=== PATIENT | female | born 1950 | race Caucasian/White ===

== ENCOUNTER 2017-01-11 08:44 | Day surgery (SDC) | payer BC ==
--- NOTE | ~2017-01-11 | PREOPHP ---
PreOp History and Physical [address] [place]. [address] NAME: GRACIELA ESPINO : [birth year] STATUS : [facility] UNIT#: [id number] AGE: 66 ADM/REG DATE : 01/11/17 MR#: [id number] REPORT SERV DATE: 01/20/17 DICTATED BY: LUCHO MORTENSEN III DATE: 01/12/17 REPORT STATUS : Draft TRANSCRIBED BY: [employer] DATE: 01/12/17 HISTORY OF PRESENT ILLNESS: This 66-year-old female comes to the operating room for gastrojejunostomy for gastric outlet obstruction secondary to chronic pancreatitis. The patient has a history of severe biliary pancreatitis. Approximately one year ago, she had severe pancreatitis requiring prolonged hospitalization. Following this, she developed a large pancreatic pseudocyst requiring open cystogastrostomy and cholecystectomy. The patient's recovery was very prolonged. The patient had been doing well until the last 4 weeks or so. She developed nausea, vomiting, and weight loss. Her workup shows evidence for high-grade gastric outlet obstruction secondary to duodenal stenosis. This is related to chronic pancreatitis with extrinsic compression of the duodenum. The patient has had profound weight loss related to this. She comes now for gastrojejunostomy. PAST MEDICAL HISTORY: 1. History of severe biliary pancreatitis in the past with prolonged hospitalization and resulting in a large pancreatic pseudocyst which required an internal cystogastrostomy. 2. Hypertension. 3. Diabetes mellitus. 4. Hypothyroidism. 5. Previous necrotizing pancreatitis. 6. Coronary artery disease. PAST SURGICAL HISTORY: Includes open cholecystectomy and open cystogastrostomy, and cardiac stent placement. MEDICATIONS: Norvasc, Caltrate, Coreg, Dilaudid, insulin, levothyroxine, vitamin, Zofran, Roxicodone, and memantine. FAMILY HISTORY: Unremarkable. SOCIAL HISTORY: No history of tobacco or alcohol use. ALLERGIES: NONE. REVIEW OF SYSTEMS: The patient complains of weight loss, nausea, vomiting, and back pain. PHYSICAL EXAMINATION: GENERAL: Reveals a frail female, in no acute distress. She is alert and oriented x3. VITAL SIGNS: Blood pressure 90/52, pulse 77, temperature 97.4. HEENT: Unremarkable. Cranial cervical 2 through 12 are normal. LUNGS: Clear. CARDIAC: Normal. ABDOMEN: Soft. Nontender. EXTREMITIES: Normal. PreOp History and Physical [address] [place]. [address] NAME: GRACIELA ESPINO : [birth year] STATUS : [facility] UNIT#: [id number] AGE: 66 ADM/REG DATE : 01/11/17 MR#: [id number] REPORT SERV DATE: 01/20/17 DICTATED BY: LUCHO MORTENSEN III DATE: 01/12/17 REPORT STATUS : Draft TRANSCRIBED BY: TON DATE: 01/12/17 LABORATORY: Panendoscopy shows a high-grade duodenal obstruction with stricture. CT scan of the abdomen and pelvis shows evidence for pancreatitis. There was noted to be a small residual pseudocyst which was felt not to be related to her obstruction. There is noted to be stranding and inflammatory changes with partial obstruction of the proximal duodenum with dilatation of the stomach with air-fluid levels. ASSESSMENT:: A 66-year-old female with: 1. High-grade gastric outlet obstruction, secondary to extrinsic compression of the duodenum secondary to chronic pancreatitis. 2. History of previous severe necrotizing pancreatitis requiring cystgastrostomy for large pancreatic pseudocyst. 3. Insulin-dependent diabetes mellitus. 4. Hypertension. 5. Profound nausea, vomiting, weight loss secondary to high-grade gastric outlet obstruction. PLAN: The patient comes to the operating room now for a gastrojejunostomy. This procedure, the risks, benefits, and alternatives, including not limited to the risk for bleeding, infection, enterotomy, injury to any abdominal structure, postop small bowel obstruction, ileus, incisional hernia, dehiscence, anastomotic leak, resulting in peritonitis, sepsis, and , gastroparesis, gastric outlet obstruction. Unforeseen complications including deep venous thrombosis, pulmonary embolus, myocardial infarction, stroke, pneumonia, and , have been fully and completely explained to the patient and family at length prior to surgery. The fact that this is a major operation with high risk for morbidity and mortality in this frail patient has been explained. The option of nonoperative management has been offered but declined. The patient's questions were answered. She clearly understands the risks and agrees to surgery as planned. YARIEL/TON Lucho Mortensen III, M.D. / [id number] CC: MD Jocelyn Mcclain Susan R.
--- NOTE | ~2017-01-11 | EGD ---
EGD REPORT [facility] [address] [address] NAME: GRACIELA ESPINO : [birth year] STATUS : [facility]#: [id number] AGE: 66 ADM/REG DATE : 01/11/17 MR#: [id number] REPORT SERV DATE: 01/11/17 DICTATED BY: KANDY BENNETT DATE: 01/11/17 REPORT STATUS : Draft TRANSCRIBED BY: [facility] DATE: 01/11/17 Endoscopy Center Patient Name: Graciela Espino Date of : 1950 Attending MD: KANDY BENNETT, Procedure Date No Time: 01/11/2017 Procedure: Upper EUS Indications: For evaluation of pancreatic cystic neoplasm, Nausea with vomiting Referring MD: LOWELL DONNELLY Medicines: Monitored Anesthesia Care Complications: No immediate complications. Estimated blood loss: None. Procedure: Pre-Anesthesia Assessment: - ASA Grade Assessment: III - A patient with severe systemic disease. After obtaining informed consent, the endoscope was passed under direct vision. Throughout the procedure, the patient's blood pressure, pulse, and oxygen saturations were monitored continuously. The Endoscope was introduced through the mouth, and advanced to the third part of duodenum. The GIF [id number] was introduced through the mouth, and advanced to the second part of duodenum. Findings: Endoscopic Finding : The examined esophagus was endoscopically normal. A suture was found in the gastric body. An acquired extrinsic moderate stenosis was found at 2nd part of the duodenum and was traversed. The appeared to be extrinsic with an inflammtory component. This was traversed but suspect this is what is causing her symptoms. The exam of the stomach was otherwise normal. The cardia and gastric fundus were normal on retroflexion. Endosonographic Finding : Endosonographic imaging of the pancreas showed sonographic changes indicative of moderate chronic pancreatitis in the pancreatic head, in the genu of the pancreas and in the pancreatic body. The parenchyma had lobularity. The pancreatic duct had duct dilation. The pancreatic duct measured up to 4 mm in diameter. The tail was not visualized and likely absent from prior necrosis. An anechoic lesion suggestive of a cyst was identified in the pancreatic head. The lesion measured 22 mm by 15 mm in maximal cross-sectional diameter. There was a single compartment There was no associated mass. There was internal debris within the fluid-filled cavity. EGD REPORT [place] [id number] [facility] [place]. [address] NAME: GRACIELA ESPINO : [birth year] STATUS : [facility] [place]#: [id number] AGE: 66 ADM/REG DATE : 01/11/17 MR#: [id number] REPORT SERV DATE: 01/11/17 DICTATED BY: KANDY BENNETT DATE: 01/11/17 REPORT STATUS : Draft TRANSCRIBED BY: [facility] DATE: 01/11/17 There was dilation in the common bile duct which measured up to 7 mm. No lymphadenopathy seen. Impression: - Normal esophagus. - A suture was found in the stomach. - Acquired duodenal stenosis. - Endosonographic imaging of the pancreas showed sonographic changes consistent with moderate chronic pancreatitis. - A 22 mm by 15 mm cystic lesion was seen in the pancreatic head. The diagnosis is a pancreatic pseudocyst. - There was dilation in the common bile duct which measured up to 7 mm. Recommendation: - Return to previous diet. - Continue present medications. - Will discuss with Dr. Mortensen portential surgical options. Procedure Code(s): --- Professional --- 43978, Esophagogastroduodenoscopy, flexible, transoral; with endoscopic ultrasound examination, including the esophagus, stomach, and either the duodenum or a surgically altered stomach where the jejunum is examined distal to the anastomosis Diagnosis Code(s): --- Professional --- R93.3, Abnormal findings on diagnostic imaging of other parts of digestive tract T18.2XXA, Foreign body in stomach, initial encounter K31.5, Obstruction of duodenum K86.3, Pseudocyst of pancreas K83.8, Other specified diseases of biliary tract D49.0, Neoplasm of unspecified behavior of digestive system R11.2, Nausea with vomiting, unspecified CPT copyright 2013 [employer]. All rights reserved. The codes documented in this report are preliminary and upon airline reservationist review may be revised to meet current compliance requirements. KANDY BENNETT, 01/11/2017 11:52 AM EGD REPORT [facility] [address] [address] NAME: GRACIELA ESPINO : [birth year] [place] : [facility] [place] [id number] AGE: 66 ADM/REG DATE : 01/11/17 MR#: [id number] REPORT SERV DATE: 01/11/17 DICTATED BY: KANDY BENNETT DATE: 01/11/17 REPORT STATUS : Draft TRANSCRIBED BY: [employer] DATE: 01/11/17 Number of Addenda: 0 Note Initiated On: 01/11/2017 11:21 AM Scope Withdrawal Time 0 hours 0 minutes 0 seconds [address] [phone]
[~2017-01-11 08:44] MED LIST: ALA-CORT1 % EX; ALTA5 PO; ASAB PO; AUG875 PO; CALTRA600D PO; CALTRAT600 PO; CENTRUM PO; CIP5 PO; CO-Q-10 OTC PO; COQ-1075 MG OR; COREG3 PO; CRESTOR40 MG PO; DIL4TAB PO; FISH-EPA1000 MG PO; FLONASE NAS; FLUCON1 PO; GLUCCHONDR PO; HALF81 PO; HUMULIN R1 ML SC; HUMULIN R1 ML SQ; HYDROCHLOROT12.5 MG PO; INSNOVR; INSULIN; IRON; IRON325 MG PO; LEVAQUIN750 MG PO; LEVEMFLXPN SC; LEVEMIR SC; LEVEMIR SQ; LEVOTHYROXIN100 MCG PO; LEVOTHYROXIN137 MCG PO; LIPITOR80 MG PO; MULTIPLE VIT PO; MULTIVIT/MIN PO; MULTIVITAMI1 PO; NATURA2 OP; NIACIN TR1000 MG PO; NORV5 PO; OSTEO BI-FLEX1 EACH PO; OXYCCODUDL PO; PERCOCET1 TA4 PO; PRAVACHOL40 MG PO; PRILOSEC40 MG PO; PRIN10 PO; PRIN20 PO; SYN.15 PO; SYN1 PO; SYN125 PO; SYNTHROID137 MCG PO; T PO; TPN; VITAMIN D1000 UNI1 PO; VITAMIN D31000 UNIT PO; VITAMIN E OTC PO; VITS; ZOFRAN ODT4 MG PO; ZOFRAN4 PO; [UNRECOGNIZED DRUG - CODE] PO; [UNRECOGNIZED DRUG - REMARK]
[2017-01-18] MEDS ORDERED: PRIN10 PO (12:41)
== END 2017-01-11 23:59 | disposition home health service (06) ==
LOC: DMU 08:44
PROVIDERS: Internal Medicine Gastroenterology
PROC: BD49ZZZ Ultrasonography of Duodenum (ICD-10-PCS; 2017-01-11)
PROC: 0F798ZZ Dilation of Common Bile Duct, Via Natural or Artificial Opening Endoscopic (ICD-10-PCS; 2017-01-11)
PROC: 0DJ08ZZ Inspection of Upper Intestinal Tract, Via Natural or Artificial Opening Endoscopic (ICD-10-PCS; principal; 2017-01-11 09:30)
DX: K31.5 Obstruction of duodenum (principal); T18.2XXA Foreign body in stomach, initial encounter; K86.3 Pseudocyst of pancreas; E11.9 Type 2 diabetes mellitus without complications
CPT/HCPCS: 82962; C1725

== ENCOUNTER 2017-01-20 05:51 | Inpatient (IN) | payer BC ==
[2017-01-18 09:32] LABS: BASOPHILS 0.7 %; BASOPHILS ABSOLUTE 0.06 10/3/uL (0.0-0.16); EOSINOPHILS 4.9 %; EOSINOPHILS ABSOLUTE 0.41 10/3/uL (0.0-0.53); IMMATURE GRANULOCYTES 0.2 %; IMMATURE GRANULOCYTES ABSOLUTE 0.02 10/3/uL (0.0-0.11); LYMPHOCYTES 15.7 %; LYMPHOCYTES ABSOLUTE 1.32 10/3/uL (0.67-4.30); MEAN PLATELET VOLUME 8.7 fL (9.2-13.0); MONOCYTES 9.8 %; MONOCYTES ABSOLUTE 0.82 10/3/uL (0.21-1.20); NEUTROPHILS 68.7 %; NEUTROPHILS ABSOLUTE 5.76 10/3/uL (2.02-8.40); WHITE BLOOD CELLS 8.4 10/3/uL (4.5-10.5)
[2017-01-18 09:34] LABS: HEMATOCRIT 36.8 % (36.0-48.0); HEMOGLOBIN 12.5 g/dL (12.0-16.0); MANUAL DIFF NO %; MEAN CORPUSCULAR HEMOGLOB 28.9 pg (26.0-34.0); PLATELET COUNT 252 10/3/uL (150-400); RBC DISTRIBUTION WIDTH 13.4 % (12.0-16.0); RED CELL COUNT 4.33 10/6/uL (4.0-5.6)
[2017-01-18 09:49] LABS: A/G RATIO 0.8 (0.7-1.9); ALBUMIN 3.6 G/DL (3.5-5.0); ALKALINE PHOSPHATASE 182 U/L (45-117); BUN (BLOOD UREA NITROGEN) 14 MG/DL (6-23); CALCIUM, SERUM 9.6 MG/DL (8.5-10.4); CHLORIDE, SERUM 103 MMOL/L (96-112); CO2 (CARBON DIOXIDE) 32 MMOL/L (24-34); CREATININE 0.78 MG/DL (0.55-1.02); GFR AFRICAN AMERICAN 91 ML/MIN (>=60); GFR NON AFRICAN AMERICAN 79 ML/MIN (>=60); GLOBULIN 4.4 G/DL (2.5-4.1); GLUCOSE, SERUM 86 MG/DL (60-99); POTASSIUM, SERUM 5.4 MMOL/L (3.5-5.3); SGOT(AST) 15 U/L (5-40); SGPT(ALT) 39 U/L (5-65); SODIUM, SERUM 137 MMOL/L (135-148); TOTAL BILIRUBIN 0.3 MG/DL (0-1.2)
--- NOTE | ~2017-01-20 | PREOPHP ---
PreOp History and Physical [address] [place]. [address] NAME: GRACIELA ESPINO : [birth year] STATUS : DIS IN PAT#: [id number] AGE: 67 ADM/REG DATE : 01/20/17 MR#: [id number] REPORT SERV DATE: 03/30/17 DICTATED BY: LUCHO MORTENSEN III DATE: 01/12/17 REPORT STATUS : Draft TRANSCRIBED BY: [employer] DATE: 01/12/17 HISTORY OF PRESENT ILLNESS: This 66-year-old female comes to the operating room for gastrojejunostomy for gastric outlet obstruction secondary to chronic pancreatitis. The patient has a history of severe biliary pancreatitis. Approximately one year ago, she had severe pancreatitis requiring prolonged hospitalization. Following this, she developed a large pancreatic pseudocyst requiring open cystogastrostomy and cholecystectomy. The patient's recovery was very prolonged. The patient had been doing well until the last 4 weeks or so. She developed nausea, vomiting, and weight loss. Her workup shows evidence for high-grade gastric outlet obstruction secondary to duodenal stenosis. This is related to chronic pancreatitis with extrinsic compression of the duodenum. The patient has had profound weight loss related to this. She comes now for gastrojejunostomy. PAST MEDICAL HISTORY: 1. History of severe biliary pancreatitis in the past with prolonged hospitalization and resulting in a large pancreatic pseudocyst which required an internal cystogastrostomy. 2. Hypertension. 3. Diabetes mellitus. 4. Hypothyroidism. 5. Previous necrotizing pancreatitis. 6. Coronary artery disease. PAST SURGICAL HISTORY: Includes open cholecystectomy and open cystogastrostomy, and cardiac stent placement. MEDICATIONS: Norvasc, Caltrate, Coreg, Dilaudid, insulin, levothyroxine, vitamin, Zofran, Roxicodone, and memantine. FAMILY HISTORY: Unremarkable. SOCIAL HISTORY: No history of tobacco or alcohol use. ALLERGIES: NONE. REVIEW OF SYSTEMS: The patient complains of weight loss, nausea, vomiting, and back pain. PHYSICAL EXAMINATION: GENERAL: Reveals a frail female, in no acute distress. She is alert and oriented x3. VITAL SIGNS: Blood pressure 90/52, pulse 77, temperature 97.4. HEENT: Unremarkable. Cranial cervical 2 through 12 are normal. LUNGS: Clear. CARDIAC: Normal. ABDOMEN: Soft. Nontender. EXTREMITIES: Normal. PreOp History and Physical [address] [place]. [address] NAME: GRCAIELA ESPINO : [birth year] STATUS : DIS IN PAT#: [id number] AGE: 67 ADM/REG DATE : 01/20/17 MR#: [id number] REPORT SERV DATE: 03/30/17 DICTATED BY: LUCHO MORTENSEN III DATE: 01/12/17 REPORT STATUS : Draft TRANSCRIBED BY: TON DATE: 01/12/17 LABORATORY: Panendoscopy shows a high-grade duodenal obstruction with stricture. CT scan of the abdomen and pelvis shows evidence for pancreatitis. There was noted to be a small residual pseudocyst which was felt not to be related to her obstruction. There is noted to be stranding and inflammatory changes with partial obstruction of the proximal duodenum with dilatation of the stomach with air-fluid levels. ASSESSMENT:: A 66-year-old female with: 1. High-grade gastric outlet obstruction, secondary to extrinsic compression of the duodenum secondary to chronic pancreatitis. 2. History of previous severe necrotizing pancreatitis requiring cystgastrostomy for large pancreatic pseudocyst. 3. Insulin-dependent diabetes mellitus. 4. Hypertension. 5. Profound nausea, vomiting, weight loss secondary to high-grade gastric outlet obstruction. PLAN: The patient comes to the operating room now for a gastrojejunostomy. This procedure, the risks, benefits, and alternatives, including not limited to the risk for bleeding, infection, enterotomy, injury to any abdominal structure, postop small bowel obstruction, ileus, incisional hernia, dehiscence, anastomotic leak, resulting in peritonitis, sepsis, and , gastroparesis, gastric outlet obstruction. Unforeseen complications including deep venous thrombosis, pulmonary embolus, myocardial infarction, stroke, pneumonia, and , have been fully and completely explained to the patient and family at length prior to surgery. The fact that this is a major operation with high risk for morbidity and mortality in this frail patient has been explained. The option of nonoperative management has been offered but declined. The patient's questions were answered. She clearly understands the risks and agrees to surgery as planned. YARIEL/TON Lucho Mortensen III, M.D. / [id number] CC: MD Jocelyn Mcclain Susan R.
--- NOTE | ~2017-01-20 | DS ---
Discharge Summary [facility] [address] [facility] [place]. [address] NAME: GARCIELA ESPINO : [birth year] STATUS : DIS IN PAT#: [id number] AGE: 67 ADM/REG DATE : 01/20/17 MR#: [id number] REPORT SERV DATE: 03/31/17 DICTATED BY: LUCHO NICHOLAS III DATE: 03/31/17 REPORT STATUS : Draft TRANSCRIBED BY: TON DATE: 03/31/17 Data Collection from hospitalization DISCHARGE DIAGNOSES: 1. High-grade gastric outlet obstruction secondary to chronic pancreatitis with duodenal stricture. 2. Hypertension. 3. Diabetes mellitus. 4. Hypothyroidism. 5. Coronary artery disease. 6. History of myocardial infarction. 7. Hypothyroidism. CONSULTATIONS: None. PROCEDURES PERFORMED: Gastrojejunostomy on 01/20/2017. MEDICATIONS: Tylenol 325 mg every four hours as needed, Norvasc 5 mg every morning, aspirin 81 mg daily, Coreg 3.125 mg twice a day, vitamin D3 2000 units daily, Dilaudid 4 mg every four hours as needed, Levemir FlexPen 17 units subcutaneously at bedtime, Novolin R as instructed, Synthroid 150 mcg every morning, Prinivil 10 mg every morning, Centrum tablets one tablet daily, and Percocet 7.5/325 one tablet every eight hours as needed. CONDITION AT DISCHARGE: Stable. DISPOSITION: The patient was discharged home on a low-fat, low-residue, 1800-calorie diabetic soft diet with Glucerna as needed and activities as instructed. She would follow up with me two weeks following discharge. HOSPITAL COURSE: This is a 66-year-old female who has a previous history of severe necrotizing biliary pancreatitis associated with pseudocyst formation requiring partial pancreatectomy and internal pseudocyst drainage. She presented with near-complete gastric outlet obstruction secondary to stenosis or stricture of the duodenum secondary to chronic pancreatitis. It was felt that gastrojejunostomy was indicated for relief of this obstruction. She was admitted to the hospital at this time for further evaluation and treatment. Upon admission, she was taken to the operating room where she underwent the above-mentioned procedure. She tolerated this well, and there were no complications. On postop day #1, she had no new complaints. She was alert and comfortable. She was afebrile. She was held n.p.o. with the NG tube in place. Her Gallagher catheter was removed. On 01/22/2017, she continued to do well. There was minimal NG output. She was progressing well. Over the next couple of days, the NG tube was removed. Clear liquids were started. She was alert and comfortable. Discharge planning was performed. We advanced her diet. The TECHNICAL SPECIALIST was discontinued. On 01/25/2017, the patient felt well and wanted to go home. She was eating well and had no nausea or vomiting. Discharge instructions were given. Due to her improved and stable condition, she was discharged home with the above-stated instructions. Discharge Summary [facility] [address] [facility] [place]. [address] NAME: GRACIELA ESPINO : [birth year] STATUS : DIS IN PAT#: [id number] AGE: 67 ADM/REG DATE : 01/20/17 MR#: [id number] REPORT SERV DATE: 03/31/17 DICTATED BY: LUCHO NICHOLAS III DATE: 03/31/17 REPORT STATUS : Draft TRANSCRIBED BY: TON DATE: 03/31/17 Information collected by: Rosi Hester I submit the above information as my discharge summary. TG/TON Lucho Nicholas III, M.D. / [id number] CC: Maximo Mcclure III, SUSAN R.
--- NOTE | ~2017-01-20 | OP ---
Record Of Operation [facility] [address] [place]. [address] NAME: GRACIELA ESPINO : [birth year] STATUS : ADM IN [facility]#: [id number] AGE: 66 ADM/REG DATE : 01/20/17 MR#: [id number] REPORT SERV DATE: 01/21/17 DICTATED BY: LUCHO NICHOLAS III DATE: 01/20/17 REPORT STATUS : Draft TRANSCRIBED BY: MODL DATE: 01/20/17 DATE OF PROCEDURE: 01/20/2017 PREOPERATIVE DIAGNOSIS: A high-grade gastric outlet obstruction secondary to chronic pancreatitis with duodenal stricture. POSTOPERATIVE DIAGNOSIS: A high-grade gastric outlet obstruction secondary to chronic pancreatitis with duodenal stricture. PROCEDURE: Gastrojejunostomy. SURGEON: Lucho Nicholas M.D. ANESTHESIA: General with intubation. COMPLICATIONS: None. ESTIMATED BLOOD LOSS: 20 mL. SPECIMENS: None. DRAINS: [place] in subcutaneous tissue. LAP AND SPONGE COUNT: Correct x3. BRIEF HISTORY: This 66-year-old female, with a previous history of severe necrotizing biliary pancreatitis associated with pseudocyst formation, requiring partial pancreatectomy and internal pseudocyst drainage, presented with near complete gastric outlet obstruction secondary to stenosis or stricture of the duodenum, secondary to chronic pancreatitis. It was felt that a gastrojejunostomy was indicated for relief of this obstruction. This procedure, the risks, benefits, and alternatives, including not limited to the risk for bleeding, infection, enterotomy, injury to abdominal structure, postop small bowel obstruction, ileus, incisional hernia, dehiscence, anastomotic leak requiring reoperation, gastroparesis, gastric outlet obstruction, recurrence, marginal ulcer and unforeseen complications including deep venous thrombosis, pulmonary embolus, myocardial infarction, stroke, pneumonia, and , were fully and completely explained to the patient and family at length prior to surgery. The fact that this was a major operation with risk for major morbidity and mortality, no guarantee for relief of her symptoms were explained to them. The expected length of recovery was explained. The patient had questions, which were answered. She clearly understood the risks and agreed to surgery as planned. DESCRIPTION OF PROCEDURE: After being properly identified and after discussing the risks of surgery with the patient and family again in the preoperative area, she was taken to the operating room and placed in the supine position on the operating room table. General anesthesia was administered. She was intubated without difficulty. A Gallagher catheter was inserted. The abdomen was prepped and draped sterilely in usual fashion. After an Record Of Operation [facility] [address] [place] [address] [place]. [address] NAME: GRACIELA ESPINO : [birth year] STATUS : ADM IN PAT#: [id number] AGE: 66 ADM/REG DATE : 01/20/17 MR#: [id number] REPORT SERV DATE: 01/21/17 DICTATED BY: LUCHO NICHOLAS III DATE: 01/20/17 REPORT STATUS : Draft TRANSCRIBED BY: MODL DATE: 01/20/17 appropriate "time-out" per [facility] standards, a left subcostal incision was made over the previous incision, about 2 cm below the costal margin. The incision was continued through the subcutaneous tissue. Hemostasis was controlled with cautery. The incision was continued through the fascia. The abdominal cavity was entered. There were dense adhesions on the underside of the abdominal wall and the omentum. Using careful sharp dissection, these adhesions were carefully divided. We exposed the stomach which appeared to be unremarkable. There was a fullness to the pancreas posterior to the stomach but no obvious mass was seen. We identified the proximal jejunum. We selected a point for our anastomosis on the jejunum just beyond the ligament of Treitz. A [id number] gastrojejunostomy was then performed, along the mid-body of the stomach. This was done after freeing up the gastrocolic ligament along the mid-body of the stomach, dividing it with Harmonic scalpel. The anastomosis was performed 2 layers, using interrupted 3-0 silk sutures on the outer posterior layer, running 3-0 chromic suture on the inner layer, and interrupted 3-0 silk sutures on the outer anterior layer. Upon completion of this, the anastomosis was widely patent to palpation. It was not twisted or kinked in anyway and was not under any tension. The anastomosis was about 4 cm in length. The NG tube was positioned just proximal to the anastomosis. Hemostasis was assured. The fascia was closed with a running looped #1 PDS suture, and the subcutaneous tissue was closed with running 3-0 chromic suture over a [place] drain which was brought out through the lateral aspect of the incision. The skin was closed with running subcuticular 4-0 Monocryl stitch. Dressings were applied. Anesthesia was reversed. The patient was taken to the recovery room in stable condition. She tolerated the procedure well. Her family was informed results of surgery. The patient will remain in the hospital for postoperative care. YARIEL/TON Lucho Nicholas III, M.D. / [id number] CC: Maximo Mcclure III, MD
[2017-01-21 06:36] LABS: BASOPHILS 0.1 %; BASOPHILS ABSOLUTE 0.01 10/3/uL (0.0-0.16); EOSINOPHILS 0.2 %; EOSINOPHILS ABSOLUTE 0.02 10/3/uL (0.0-0.53); IMMATURE GRANULOCYTES 0.2 %; IMMATURE GRANULOCYTES ABSOLUTE 0.02 10/3/uL (0.0-0.11); LYMPHOCYTES 9.1 %; LYMPHOCYTES ABSOLUTE 0.95 10/3/uL (0.67-4.30); MEAN CORPUS HGB CONC 33.6 g/dL (32.0-36.0); MEAN CORPUSCULAR HEMOGLOB 29.3 pg (26.0-34.0); MEAN CORPUSCULAR VOLUME 87.1 fL (80-100); MEAN PLATELET VOLUME 9.1 fL (9.2-13.0); MONOCYTES 7.5 %; MONOCYTES ABSOLUTE 0.78 10/3/uL (0.21-1.20); NEUTROPHILS 82.9 %; NEUTROPHILS ABSOLUTE 8.63 10/3/uL (2.02-8.40); RBC DISTRIBUTION WIDTH 13.8 % (12.0-16.0); WHITE BLOOD CELLS 10.4 10/3/uL (4.5-10.5)
[2017-01-21 06:39] LABS: HEMATOCRIT 25.6 % (36.0-48.0); HEMOGLOBIN 8.6 g/dL (12.0-16.0); MANUAL DIFF NO %; PLATELET COUNT 163 10/3/uL (150-400); RED CELL COUNT 2.94 10/6/uL (4.0-5.6)
[2017-01-21 07:29] LABS: BUN (BLOOD UREA NITROGEN) 22 MG/DL (6-23); CHLORIDE, SERUM 102 MMOL/L (96-112); CO2 (CARBON DIOXIDE) 25 MMOL/L (24-34); POTASSIUM, SERUM 5.2 MMOL/L (3.5-5.3); SODIUM, SERUM 134 MMOL/L (135-148)
[2017-01-21 07:30] LABS: GLUCOSE, SERUM 362 MG/DL (60-99)
[2017-01-21 07:34] LABS: CREATININE 1.15 MG/DL (0.55-1.02); GFR AFRICAN AMERICAN 57 ML/MIN (>=60); GFR NON AFRICAN AMERICAN 49 ML/MIN (>=60)
[2017-01-22 05:34] LABS: BASOPHILS 0.3 %; BASOPHILS ABSOLUTE 0.03 10/3/uL (0.0-0.16); EOSINOPHILS 2.7 %; EOSINOPHILS ABSOLUTE 0.24 10/3/uL (0.0-0.53); IMMATURE GRANULOCYTES 0.2 %; IMMATURE GRANULOCYTES ABSOLUTE 0.02 10/3/uL (0.0-0.11); LYMPHOCYTES ABSOLUTE 1.31 10/3/uL (0.67-4.30); MEAN CORPUSCULAR HEMOGLOB 28.9 pg (26.0-34.0); MEAN CORPUSCULAR VOLUME 85.2 fL (80-100); MEAN PLATELET VOLUME 9.6 fL (9.2-13.0); MONOCYTES 10.3 %; NEUTROPHILS 71.5 %; NEUTROPHILS ABSOLUTE 6.25 10/3/uL (2.02-8.40); PLATELET COUNT 177 10/3/uL (150-400); RBC DISTRIBUTION WIDTH 13.7 % (12.0-16.0); WHITE BLOOD CELLS 8.8 10/3/uL (4.5-10.5)
[2017-01-22 05:36] LABS: HEMATOCRIT 37.4 % (36.0-48.0); HEMOGLOBIN 12.7 g/dL (12.0-16.0); MANUAL DIFF NO %; RED CELL COUNT 4.39 10/6/uL (4.0-5.6)
[2017-01-22 05:40] LABS: CHLORIDE, SERUM 107 MMOL/L (96-112); CO2 (CARBON DIOXIDE) 25 MMOL/L (24-34); CREATININE 0.77 MG/DL (0.55-1.02); GFR AFRICAN AMERICAN 93 ML/MIN (>=60); GFR NON AFRICAN AMERICAN 80 ML/MIN (>=60); SODIUM, SERUM 138 MMOL/L (135-148)
[2017-01-22 05:42] LABS: BUN (BLOOD UREA NITROGEN) 16 MG/DL (6-23); CALCIUM, SERUM 9.2 MG/DL (8.5-10.4); GLUCOSE, SERUM 122 MG/DL (60-99)
[2017-01-23 05:10] LABS: BASOPHILS 0.5 %; BASOPHILS ABSOLUTE 0.04 10/3/uL (0.0-0.16); EOSINOPHILS 2.7 %; EOSINOPHILS ABSOLUTE 0.23 10/3/uL (0.0-0.53); HEMATOCRIT 34.8 % (36.0-48.0); HEMOGLOBIN 11.7 g/dL (12.0-16.0); IMMATURE GRANULOCYTES 0.2 %; IMMATURE GRANULOCYTES ABSOLUTE 0.02 10/3/uL (0.0-0.11); LYMPHOCYTES 14.7 %; LYMPHOCYTES ABSOLUTE 1.23 10/3/uL (0.67-4.30); MANUAL DIFF NO %; MEAN CORPUS HGB CONC 33.6 g/dL (32.0-36.0); MEAN CORPUSCULAR HEMOGLOB 28.3 pg (26.0-34.0); MEAN CORPUSCULAR VOLUME 84.3 fL (80-100); MEAN PLATELET VOLUME 9.7 fL (9.2-13.0); MONOCYTES 10.2 %; MONOCYTES ABSOLUTE 0.85 10/3/uL (0.21-1.20); NEUTROPHILS 71.7 %; PLATELET COUNT 164 10/3/uL (150-400); RBC DISTRIBUTION WIDTH 13.5 % (12.0-16.0); RED CELL COUNT 4.13 10/6/uL (4.0-5.6); WHITE BLOOD CELLS 8.4 10/3/uL (4.5-10.5)
[2017-01-23 05:16] LABS: BUN (BLOOD UREA NITROGEN) 13 MG/DL (6-23); CALCIUM, SERUM 8.9 MG/DL (8.5-10.4); CHLORIDE, SERUM 104 MMOL/L (96-112); CO2 (CARBON DIOXIDE) 22 MMOL/L (24-34); CREATININE 0.67 MG/DL (0.55-1.02); GFR AFRICAN AMERICAN 105 ML/MIN (>=60); GFR NON AFRICAN AMERICAN 91 ML/MIN (>=60); POTASSIUM, SERUM 4.7 MMOL/L (3.5-5.3); SODIUM, SERUM 136 MMOL/L (135-148)
[2017-01-23 05:17] LABS: GLUCOSE, SERUM 76 MG/DL (60-99)
[2017-01-24 06:53] LABS: BASOPHILS 0.4 %; BASOPHILS ABSOLUTE 0.03 10/3/uL (0.0-0.16); EOSINOPHILS 4.1 %; EOSINOPHILS ABSOLUTE 0.28 10/3/uL (0.0-0.53); HEMATOCRIT 34.2 % (36.0-48.0); HEMOGLOBIN 11.7 g/dL (12.0-16.0); IMMATURE GRANULOCYTES 0.1 %; IMMATURE GRANULOCYTES ABSOLUTE 0.01 10/3/uL (0.0-0.11); LYMPHOCYTES 15.6 %; LYMPHOCYTES ABSOLUTE 1.06 10/3/uL (0.67-4.30); MEAN CORPUS HGB CONC 34.2 g/dL (32.0-36.0); MEAN CORPUSCULAR HEMOGLOB 28.9 pg (26.0-34.0); MEAN CORPUSCULAR VOLUME 84.4 fL (80-100); MEAN PLATELET VOLUME 9.1 fL (9.2-13.0); MONOCYTES 9.6 %; MONOCYTES ABSOLUTE 0.65 10/3/uL (0.21-1.20); NEUTROPHILS 70.2 %; NEUTROPHILS ABSOLUTE 4.77 10/3/uL (2.02-8.40); PLATELET COUNT 203 10/3/uL (150-400); RBC DISTRIBUTION WIDTH 13.4 % (12.0-16.0); RED CELL COUNT 4.05 10/6/uL (4.0-5.6); WHITE BLOOD CELLS 6.8 10/3/uL (4.5-10.5)
[2017-01-24 07:03] LABS: CALCIUM, SERUM 9.4 MG/DL (8.5-10.4); CHLORIDE, SERUM 104 MMOL/L (96-112); CREATININE 0.67 MG/DL (0.55-1.02); GFR AFRICAN AMERICAN 105 ML/MIN (>=60); GFR NON AFRICAN AMERICAN 91 ML/MIN (>=60); POTASSIUM, SERUM 4.3 MMOL/L (3.5-5.3); SODIUM, SERUM 139 MMOL/L (135-148)
[2017-01-24 07:04] LABS: BUN (BLOOD UREA NITROGEN) 7 MG/DL (6-23); CO2 (CARBON DIOXIDE) 27 MMOL/L (24-34); GLUCOSE, SERUM 148 MG/DL (60-99); MANUAL DIFF NO %
[2017-01-25 06:25] LABS: BASOPHILS 0.3 %; BASOPHILS ABSOLUTE 0.02 10/3/uL (0.0-0.16); EOSINOPHILS 5.3 %; EOSINOPHILS ABSOLUTE 0.32 10/3/uL (0.0-0.53); HEMOGLOBIN 10.2 g/dL (12.0-16.0); IMMATURE GRANULOCYTES 0.2 %; IMMATURE GRANULOCYTES ABSOLUTE 0.01 10/3/uL (0.0-0.11); LYMPHOCYTES 22.3 %; LYMPHOCYTES ABSOLUTE 1.34 10/3/uL (0.67-4.30); MEAN CORPUS HGB CONC 34.2 g/dL (32.0-36.0); MEAN CORPUSCULAR HEMOGLOB 28.7 pg (26.0-34.0); MEAN CORPUSCULAR VOLUME 83.9 fL (80-100); MONOCYTES 10.3 %; MONOCYTES ABSOLUTE 0.62 10/3/uL (0.21-1.20); NEUTROPHILS 61.6 %; NEUTROPHILS ABSOLUTE 3.69 10/3/uL (2.02-8.40); PLATELET COUNT 184 10/3/uL (150-400); RBC DISTRIBUTION WIDTH 13.3 % (12.0-16.0); RED CELL COUNT 3.55 10/6/uL (4.0-5.6)
[2017-01-25 06:28] LABS: HEMATOCRIT 29.8 % (36.0-48.0); MANUAL DIFF NO %
[2017-01-25 06:35] LABS: BUN (BLOOD UREA NITROGEN) 5 MG/DL (6-23); CALCIUM, SERUM 8.5 MG/DL (8.5-10.4); CHLORIDE, SERUM 106 MMOL/L (96-112); CO2 (CARBON DIOXIDE) 26 MMOL/L (24-34); CREATININE 0.59 MG/DL (0.55-1.02); GFR AFRICAN AMERICAN 110 ML/MIN (>=60); GFR NON AFRICAN AMERICAN 95 ML/MIN (>=60); GLUCOSE, SERUM 159 MG/DL (60-99); POTASSIUM, SERUM 4.3 MMOL/L (3.5-5.3); SODIUM, SERUM 139 MMOL/L (135-148)
[2017-01-25] MEDS ORDERED: PERCOCET 7.5/321 TAB PO (07:51)
== END 2017-01-25 11:01 | disposition home or self-care (01) | DRG 327 ==
LOC: SDC/OF 05:51 → PACU 09:47 → 5SO 11:21
PROVIDERS: Surgery
PROC: 0D160ZA Bypass Stomach to Jejunum, Open Approach (ICD-10-PCS; principal; 2017-01-20 07:45)
DX: K31.1 Adult hypertrophic pyloric stenosis (principal); K86.1 Other chronic pancreatitis; K31.5 Obstruction of duodenum; I10 Essential (primary) hypertension; I25.10 Atherosclerotic heart disease of native coronary artery without angina pectoris; E03.9 Hypothyroidism, unspecified; E11.9 Type 2 diabetes mellitus without complications; I25.2 Old myocardial infarction; Z95.5 Presence of coronary angioplasty implant and graft
CPT/HCPCS: 71020; 80048; 80053; 82962; 85025; 93005; A9270-GY; C9113; J0690; J1885; J2250; J2270; J2405; J2710; J2795; J3010

== ENCOUNTER 2017-01-28 15:22 | Emergency (ER) | payer BC ==
[~2017-01-28 15:22] MED LIST changes: +PERCOCET 7.5/321 TAB PO
[2017-01-28 16:08] LABS: BASOPHILS 0.3 %; BASOPHILS ABSOLUTE 0.03 10/3/uL (0.0-0.16); EOSINOPHILS ABSOLUTE 0.34 10/3/uL (0.0-0.53); HEMOGLOBIN 11.7 g/dL (12.0-16.0); IMMATURE GRANULOCYTES 0.2 %; IMMATURE GRANULOCYTES ABSOLUTE 0.02 10/3/uL (0.0-0.11); LYMPHOCYTES 14.3 %; MEAN CORPUS HGB CONC 33.3 g/dL (32.0-36.0); MEAN CORPUSCULAR HEMOGLOB 28.7 pg (26.0-34.0); MEAN PLATELET VOLUME 8.6 fL (9.2-13.0); MONOCYTES 8.8 %; MONOCYTES ABSOLUTE 0.98 10/3/uL (0.21-1.20); NEUTROPHILS 73.4 %; NEUTROPHILS ABSOLUTE 8.22 10/3/uL (2.02-8.40); RBC DISTRIBUTION WIDTH 13.6 % (12.0-16.0); RED CELL COUNT 4.08 10/6/uL (4.0-5.6)
[2017-01-28 16:10] LABS: ER CBC TAT 0 Hrs 07 Mins; HEMATOCRIT 35.1 % (36.0-48.0); MANUAL DIFF NO %; PLATELET COUNT 379 10/3/uL (150-400); WHITE BLOOD CELLS 11.2 10/3/uL (4.5-10.5)
[2017-01-28 16:16] LABS: ASCORBIC ACID (UR NOT ORDER) 20 (NEG); BILIRUBIN, URINE NEGATIVE (NEG); ER URINALYSIS TAT 0 Hrs 13 Mins; KETONE, URINE NEGATIVE (NEG); LEUKOCYTE ESTERASE(NOT OR NEG (NEG); NITRITE (URINE) NEG (NEG); WBC (NOT ORDERED) (RFLEX) < 1 (0-5)
[2017-01-28 16:23] LABS: A/G RATIO 0.6 (0.7-1.9); ALKALINE PHOSPHATASE 517 U/L (45-117); BUN (BLOOD UREA NITROGEN) 13 MG/DL (6-23); CALCIUM, SERUM 9.2 MG/DL (8.5-10.4); CHLORIDE, SERUM 101 MMOL/L (96-112); CO2 (CARBON DIOXIDE) 31 MMOL/L (24-34); CREATININE 0.76 MG/DL (0.55-1.02); GFR AFRICAN AMERICAN 94 ML/MIN (>=60); GFR NON AFRICAN AMERICAN 81 ML/MIN (>=60); GLOBULIN 4.8 G/DL (2.5-4.1); GLUCOSE, SERUM 176 MG/DL (60-99); POTASSIUM, SERUM 4.9 MMOL/L (3.5-5.3); SGOT(AST) 40 U/L (5-40); SGPT(ALT) 93 U/L (5-65); SODIUM, SERUM 134 MMOL/L (135-148); TOTAL BILIRUBIN 0.3 MG/DL (0-1.2); TOTAL PROTEIN 7.8 G/DL (6.0-8.5)
== END 2017-01-28 20:28 | disposition home or self-care (01) ==
LOC: ER 15:22
PROVIDERS: Hospitalist
DX: G89.18 Other acute postprocedural pain (principal); R10.13 Epigastric pain; I10 Essential (primary) hypertension; I25.2 Old myocardial infarction; E11.9 Type 2 diabetes mellitus without complications; I25.10 Atherosclerotic heart disease of native coronary artery without angina pectoris; Z79.82 Long term (current) use of aspirin; Z98.61 Coronary angioplasty status; Z79.4 Long term (current) use of insulin
CPT/HCPCS: 71020; 74176; 80053; 81001; 83690; 85025; 87040; 96374; 99284; J1170; J2405